=== PATIENT | male | born 1990 | race African-American/Black ===

== ENCOUNTER 2018-01-08 17:16 | Emergency (ER) | payer OTHER ==
[~2018-01-08] VITALS: Ht 182.9 cm; Wt 139.1 kg
[2018-01-08] MEDS ORDERED: LIPITOR20 MG PO (17:44)
[2018-01-08] MEDS ORDERED: INVOKAMET1 (17:44)
[2018-01-08 18:30] VITALS: BP 139/78; PULSE 60; TEMP 97.8
== END 2018-01-08 18:33 | disposition home or self-care (01) ==
LOC: COL.ER 17:16
DX: E11.65 Type 2 diabetes mellitus with hyperglycemia (principal); R42 Dizziness and giddiness; Z79.84 Long term (current) use of oral hypoglycemic drugs

== ENCOUNTER 2020-07-25 13:53 | Emergency (ER) | payer BC ==
[~2020-07-25] VITALS: Ht 185.4 cm; Wt 137.3 kg
[~2020-07-25 13:53] MED LIST: INVOKAMET1; LIPITOR20 MG PO
[2020-07-25 14:01] VITALS: TEMP 97.9
[2020-07-25 15:18] LABS: BASO % 0.5 % (0.0-2.0); EOS # 0.1 (0.0-0.7); EOS % 0.9 % (0-4.0); GRAN # 3.7 (1.4-6.5); GRAN % 63.7 % (42.2-75.2); HEMATOCRIT 41.8 % (42.0-52.0); HEMOGLOBIN 13.8 g/dl (13.5-18.0); LYMPH # 1.7 (1.2-3.4); LYMPH % 28.9 % (20.0-51.0); MEAN CELL VOLUME 80 fl (80.0-100.0); MEAN CORPUSCULAR HEMOGLOBIN 26 pg (27.0-31.0); MEAN CORPUSCULAR HGB CONC 33 g/dl (33.0-37.0); MEAN PLATELET VOLUME 10.5 fl (7.4-10.4); MONO # 0.3 (0.1-0.6); MONO % 5.7 % (1.7-9.3); PLATELET COUNT 270 K/mm3 (130-400); RED BLOOD COUNT 5.26 M/mm3 (4.20-5.60); REDCELL DISTRIBUTION WIDTH-CV 12.6 % (11.5-14.5)
[2020-07-25 15:29] LABS: ALANINE AMINOTRANSFERASE 45 U/L (4-49); ALBUMIN 4.3 gm/dL (3.5-5.0); ALKALINE PHOSPHATASE 69 U/L (50-136); ANION GAP 9 mmol/L (7-16); AST,SGOT 29 U/L (15-37); BILIRUBIN,TOTAL 0.6 mg/dL (0.0-1.0); BLOOD UREA NITROGEN 12 mg/dL (9-20); CALCIUM 9.6 mg/dL (8.4-10.2); CARBON DIOXIDE 28 mmol/L (22-30); CHLORIDE 100 mmol/L (98-107); CREATININE, serum 0.82 (0.66-1.25); GLUCOSE 326 mg/dL (74-106); POTASSIUM 3.9 mmol/L (3.4-5.0); SODIUM 136 mmol/L (137-145)
[2020-07-25 15:56] LABS: TROPONIN-I < 0.012 ng/mL (0.000-0.035)
[2020-07-25] MEDS ORDERED: VOLTAREN 75 DR75 MG PO (16:00)
[2020-07-25 16:12] VITALS: BP 145/90; PULSE 76
== END 2020-07-25 16:15 | disposition home or self-care (01) ==
LOC: COL.ER 13:53
PROVIDERS: Emergency Medicine
DX: R07.9 Chest pain, unspecified (principal); E11.9 Type 2 diabetes mellitus without complications; Z79.84 Long term (current) use of oral hypoglycemic drugs